=== PATIENT | female | born 1975 | race Caucasian/White ===

== ENCOUNTER 2016-06-24 15:21 | Emergency (ER) | payer MEDICARE | END 2016-06-24 18:35 | disposition home or self-care (01) | LOC: ER1 15:21 | DX: B34.9 Viral infection, unspecified (principal); F17.210 Nicotine dependence, cigarettes, uncomplicated | CPT/HCPCS: 81001; 84703; 87081; 87880; 96360; 99283; J7030 ==

== ENCOUNTER 2020-11-19 14:10 | Emergency (ER) | payer OTHER ==
[~2020-11-19 14:10] MED LIST: Bromphed DM PO; FLONASE 0.05% N16 GM; IBUPROFEN600 MG PO; PENVEE K 500 M500 MG PO
[2020-11-19 15:46] LABS: HEMOGLOBIN 11.9 gm/dl (12.3-15.3); RED BLOOD COUNT 4.37 M/UL (4.00-5.10); WHITE BLOOD COUNT 11.7 K/UL (4.5-11.0)
[2020-11-19 16:18] LABS: BUN/CREATININE RATIO 18 (0-10)
[2020-11-19] MEDS ORDERED: ZOFRAN4 MG PO (21:32)
[2020-11-19] MEDS ORDERED: PROTONIX40 MG PO (21:32)
== END 2020-11-19 21:50 | disposition home or self-care (01) ==
LOC: ER1 14:10
PROVIDERS: Physician Assistant
DX: K29.00 Acute gastritis without bleeding (principal); K82.8 Other specified diseases of gallbladder; F17.200 Nicotine dependence, unspecified, uncomplicated
CPT/HCPCS: 80053; 83690; 85025; 93005; 96374; 96375; 99284; C9113; J2405; J7030; Q9967

== ENCOUNTER 2021-02-10 12:36 | Emergency (ER) | payer OTHER ==
[~2021-02-10 12:36] MED LIST changes: +PROTONIX40 MG PO; +ZOFRAN4 MG PO
[2021-02-10 13:43] LABS: HEMOGLOBIN 10.7 gm/dl (12.3-15.3); RED BLOOD COUNT 4.06 M/UL (4.00-5.10); WHITE BLOOD COUNT 7.8 K/UL (4.5-11.0)
[2021-02-10 14:00] LABS: BUN/CREATININE RATIO 16 (0-10)
== END 2021-02-10 17:24 | disposition home or self-care (01) ==
LOC: ER1 12:36
PROVIDERS: Student in an Organized Health Care Education/Training Program
DX: S06.0X9A Concussion with loss of consciousness of unspecified duration, initial encounter (principal); S13.4XXA Sprain of ligaments of cervical spine, initial encounter; M62.830 Muscle spasm of back; F17.200 Nicotine dependence, unspecified, uncomplicated; V43.52XA Car driver injured in collision with other type car in traffic accident, initial encounter; Y92.410 Unspecified street and highway as the place of occurrence of the external cause
CPT/HCPCS: 70450; 71260; 72125; 80048; 85025; 99284; Q9967

== ENCOUNTER → 2021-04-29 | Outpatient (CLI) | payer OTHER | LOC: KOH-I 10:57 | DX: R06.00 Dyspnea, unspecified (principal) | CPT/HCPCS: 71046 ==

== ENCOUNTER 2021-09-22 01:52 | Emergency (ER) | payer OTHER ==
[2021-09-22 02:50] LABS: HEMOGLOBIN 11.4 gm/dl (12.3-15.3); RED BLOOD COUNT 4.27 M/UL (4.00-5.10); WHITE BLOOD COUNT 9.2 K/UL (4.5-11.0)
[2021-09-22 03:16] LABS: BUN/CREATININE RATIO 16 (0-10)
[2021-09-22] MEDS ORDERED: NEXIUM20 MG PO (04:27)
[2021-09-22] MEDS ORDERED: FIBER500 MG PO (14:56)
[2021-09-22] MEDS ORDERED: SENOKOT-S TABL1 EACH PO (14:56)
[2021-09-22] MEDS ORDERED: FLORASTOR250 MG PO (14:56)
[2021-09-22] MEDS ORDERED: ZOFRAN 4 MG TAB4 MG PO (14:56)
== END 2021-09-22 04:30 | disposition home or self-care (01) ==
LOC: ER1 01:52
PROVIDERS: Family Medicine
DX: R10.13 Epigastric pain (principal); F17.210 Nicotine dependence, cigarettes, uncomplicated
CPT/HCPCS: 80053; 82550; 82553; 83605; 83690; 84484; 85025; 93005; 99284; Q9967

== ENCOUNTER 2021-09-22 12:52 | Emergency (ER) | payer OTHER ==
[~2021-09-22 12:52] MED LIST changes: +NEXIUM20 MG PO
[2021-09-22 14:11] LABS: RED BLOOD COUNT 4.43 M/UL (4.00-5.10); WHITE BLOOD COUNT 9.6 K/UL (4.5-11.0)
[2021-09-22 14:30] LABS: BUN/CREATININE RATIO 15 (0-10)
[2021-09-22] MEDS ORDERED: SENOKOT-S TABL1 EACH PO (14:56)
[2021-09-22] MEDS ORDERED: FLORASTOR250 MG PO (14:56)
[2021-09-22] MEDS ORDERED: FIBER500 MG PO (14:56)
[2021-09-22] MEDS ORDERED: ZOFRAN 4 MG TAB4 MG PO (14:56)
== END 2021-09-22 15:15 | disposition home or self-care (01) ==
LOC: ER1 12:52
PROVIDERS: Physician Assistant Medical
DX: K59.00 Constipation, unspecified (principal); F17.210 Nicotine dependence, cigarettes, uncomplicated
CPT/HCPCS: 80053; 81001; 83605; 83690; 85025; 86140; 96374; 96375; 99284; J2270; J2405